=== PATIENT | male | born 1990 | race Caucasian/White ===

== ENCOUNTER 2023-08-04 10:20 | Emergency (ER) | payer MEDICAID ==
[~2023-08-04] VITALS: Ht 167.6 cm; Wt 53.5 kg
[2023-08-04] MEDS ORDERED: Acetaminophen/Oxycodone 5 MG/325 MG TABLET PO ONE (10:35)
[2023-08-04] MEDS ORDERED: MELOXICAM15 MG PO (11:07)
[2023-08-04] MEDS ORDERED: CYCLOBENZAPRINE10 MG PO (11:07)
== END 2023-08-04 11:54 | disposition home or self-care (01) ==
LOC: ED 10:20
DX: R07.81 Pleurodynia (principal)

== ENCOUNTER 2023-12-12 18:49 | Emergency (ER) | payer MEDICAID ==
[~2023-12-12] VITALS: Ht 167.6 cm; Wt 48.5 kg
[~2023-12-12 18:49] MED LIST: CYCLOBENZAPRINE10 MG PO; MELOXICAM15 MG PO
[2023-12-12] MEDS ORDERED: LORazepam 1 MG TAB PO ONE (19:30)
== END 2023-12-12 22:05 | disposition home or self-care (01) ==
LOC: ED 18:49
DX: F41.9 Anxiety disorder, unspecified (principal); F43.0 Acute stress reaction; R20.0 Anesthesia of skin

== ENCOUNTER 2024-11-11 06:35 | Emergency (ER) | payer BC ==
[~2024-11-11] VITALS: Ht 167.6 cm; Wt 56.7 kg
[2024-11-11] MEDS ORDERED: diphenhydrAMINE hydrochloride 50 MG/ML VIAL IV ONE (07:10)
[2024-11-11] MEDS ORDERED: SODIUM CHLORIDE 0.9% 1,000 ML IV ONE (07:10)
[2024-11-11] MEDS ORDERED: FAMOTIDINE 50 ML IV ONE (07:10)
[2024-11-11] MEDS ORDERED: Metoclopramide Hydrochloride 10 MG/2 ML VIAL IV ONE (07:10)
[2024-11-11 07:25] LABS: BASO # 0.0 10*3/uL (0.0-0.1); BASO % 0.2 % (0.0-1.0); EOS # 0.3 10*3/uL (0.0-0.4); EOS % 2.4 % (1.0-4.0); MEAN CELL VOLUME 88.2 fl (80.0-94.0); MEAN CORPUSCULAR HGB 28.1 pg (27.0-31.0); MEAN PLATELET VOLUME 9.6 fl (9.6-12.3); MONO # 0.9 10*3/uL (0.1-1.0); MONO % 8.3 % (3.0-9.0); NEUT # 7.8 10*3/uL (2.3-7.9); NEUT % 75.7 % (47.0-73.0); NUCLEATED RED BLOOD CELL 0.0 % (0.0-0.0); NUCLEATED RED BLOOD CELL 0.0 10*3/uL (0.0-0.0); PLATELET COUNT AUTOMATED 227 10*3/uL (130-400); RED CELL DISTRI WIDTH 11.9 % (0-14.5)
[2024-11-11 07:48] LABS: BUN 10 mg/dl (9-23)
[2024-11-11] MEDS ORDERED: REGLAN10 M1 PO (08:01)
[2024-11-11] MEDS ORDERED: PEPCID20 MG PO (08:01)
== END 2024-11-11 08:49 | disposition home or self-care (01) ==
LOC: ED 06:35
PROVIDERS: Emergency Medicine
DX: R11.2 Nausea with vomiting, unspecified (principal)